=== PATIENT | male | born 1980 | race Hispanic/Latino ===

== ENCOUNTER 2025-05-22 05:58 | Emergency (ER) | payer SELFPAY ==
[2025-05-22] MEDS ORDERED: TDAP (DIPHTH,PERTUSS(ACELL),TET VAC) 0.5 ML VIAL IMVAC ONE (06:30)
[2025-05-22] MEDS ORDERED: NA CHLORIDE 0.9% 1,000 ML ONE (06:34)
[2025-05-22 07:08] LABS: Absolute Lymphocytes (CBC) 0.5 K/uL (0.7-4.9); Hematocrit 48.0 % (39.6-49.0); Hemoglobin 16.4 g/dL (13.6-17.9); MCH 28.8 pg (27.0-35.0); MCHC 34.1 g/dL (32.0-36.0); MCV 84.5 fL (80-100); MPV 8.2 fL (7.6-11.3); Nucleated RBC Absolute Count 0.0 (0-0); Nucleated Red Blood Cells % 0.1 % (0-0); RBC Red Blood Cell Count 5.68 M/uL (4.33-5.43); White Blood Count 16.00 thou/uL (4.3-10.9)
--- NOTE | 2025-05-22 07:09 | RAD REPORT ---
EXAMINATION: Head Brain Wo Cont CLINICAL INDICATION: Male, 44 years old.TRAUMA TECHNIQUE: Axial CT images from the skull base to the vertex without intravenous contrast. Coronal an d sagittal reformatted images were created from the data set. One or more of the following dose reduction techniques were used: Automated exposure control, adjustment of the mA and/or kV according to patient size, and/or iterative reconstruction. Unless otherwise specified, incidental findings do not require dedicated imaging follow-up. [id number]. COMPARISON: No prior exams FINDINGS: INTRACRANIAL: No acute intracranial hemorrhage. No acute large vascular territory infarct. No hydro cephalus. No mass effect or midline shift. No significant white matter disease. Left parietal scalp laurence. VASCULATURE: No visualized abnormalities in the arteries or dural venous sinuses. SCALP/SKULL: No calvarial fracture identified. No acute soft tissue abnormality. SINUSES: The visualized paranasal sinuses are mostly clear. No significant mastoid fluid. IMPRESSION: No acute intracranial abnormality.
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
[2025-05-22 07:30] LABS: ALT/SGPT 75 U/L (16-61); AST/SGOT 40 U/L (15-37); Albumin 4.2 g/dL (3.4-5.0); Albumin/Globulin Ratio 1.0 (1.1-1.8); Alkaline Phosphatase 110 U/L (45-117); Anion Gap 20.9 mEq/L (5.0-15.0); BUN Blood Urea Nitrogen 13 mg/dL (7-18); Globulin 4.2 g/dL (2.3-3.5); Glucose Level 154 mg/dL (74-106); Potassium 3.9 mEq/L (3.5-5.1)
[2025-05-22 07:32] LABS: Bilirubin Indirect, Calculated 0.2 mg/dL (0.2-0.8)
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
[2025-05-22 08:29] VITALS: TEMP 98.2
[2025-05-22 08:34] LABS: White Blood Cell Scan OK (OK)
[2025-05-22 08:35] LABS: Blood Morphology Comment NOT SEEN (NOT SEEN)
[2025-05-22 08:46] VITALS: BP 107/55; O2SAT 99
== END 2025-05-22 08:20 | disposition home or self-care (01) ==
LOC: ER 05:58
PROC: 0HQ0XZZ Repair Scalp Skin, External Approach (ICD-10-PCS; principal; 2025-05-22)
DX: S01.01XA Laceration without foreign body of scalp, initial encounter (principal)
CPT/HCPCS: 36415; 70450; 70486; 76377; 80048; 80076; 82077; 85025; 90715; 96360; 96372; 99284; J7030